=== PATIENT | female | born 2005 | race Two or more races ===

== ENCOUNTER 2024-07-31 07:03 | Inpatient (IN) | payer SELFPAY ==
[~2024-07-31 07:03] MED LIST: Bupivacaine 0.25% 10 ML SDV ONE
[2024-07-31] MEDS ORDERED: Sodium Chloride 0.9% 10 ML Syringe FLUSH PRN (08:13)
[2024-07-31] MEDS ORDERED: Ondansetron 4 MG/2 ML SDV IVPUSH PRN (08:13)
[2024-07-31] MEDS ORDERED: Calcium Carbonate 500 MG Tab.Chew PO PRN (08:13)
[2024-07-31] MEDS ORDERED: Lidocaine 1% 50 ML MDV INJECT PRN (08:13)
[2024-07-31] MEDS ORDERED: Oxytocin/0.9 % Sodium Chloride 30 UNIT/500 ML BAG IV SCH ×2 (08:15→20:15)
[2024-07-31 08:50] LABS: BASOPHILS PERCENT AUTO 0.2 % (0.0-1.0); EOSINOPHILS ABSOLUTE AUTO 0.1 K/mm3 (0.0-0.4); EOSINOPHILS PERCENT AUTO 0.5 % (0.0-6.0); HEMATOCRIT 36.7 % (37.0-47.0); HEMOGLOBIN 11.7 gm/dl (12.0-16.0); IMMATURE GRAN ABSOLUTE AUTO 0.03 K/mm3 (0.00-0.05); IMMATURE GRAN PERCENT AUTO 0.3 % (0.0-0.4); LYMPHOCYTES PERCENT AUTO 20.3 % (24.0-44.0); MEAN CORPUSCULAR HEMOGLOBIN 25.8 pg (28.0-32.0); MEAN CORPUSCULAR HGB CONC 31.9 g/dl (32.0-36.0); MEAN PLATELET VOLUME 11.7 fl (9.4-12.3); MONOCYTES ABSOLUTE AUTO 0.6 K/mm3 (0.0-0.8); NEUTROPHILS ABSOLUTE AUTO 7.2 K/mm3 (1.8-7.7); NEUTROPHILS PERCENT AUTO 72.7 % (41.0-71.0); PLATELET COUNT,PLT 199 K/mm3 (150-400); RED BLOOD CELL COUNT 4.53 M/mm3 (4.10-5.30); WHITE BLOOD CELL COUNT,WBC 9.88 K/mm3 (3.9-11.3)
[2024-07-31] MEDS: Lactated Ringers 1,000 ML IV SCH (09:20)
[2024-07-31] MEDS: Oxytocin/0.9 % Sodium Chloride 30 UNIT/500 ML BAG IV SCH (09:21)
[2024-07-31 09:54] LABS: CREATININE 0.6 mg/dL (0.55-1.02); EST CRCL DRUG DOSING (CG) 106.53 mL/min; URIC ACID 4.4 mg/dL (2.6-6.0)
[2024-07-31 12:04] LABS: CREATININE,URINE RAND 206.2 mg/dL (30.0-125.0); PROTEIN CREATININE RATIO,URINE 467.5 mg/g (0-149); PROTEIN,URINE RANDOM 96.4 mg/dL (0.0-11.8)
[2024-07-31] MEDS: Nalbuphine 10 MG/1 ML Vial IVPUSH PRN (15:28)
[2024-07-31] MEDS ORDERED: ePHEDrine 50 MG/ML SDV IVPUSH PRN (15:39)
[2024-07-31] MEDS ORDERED: diphenhydrAMINE 50 MG/ML SDV IVPUSH PRN (15:39)
[2024-07-31] MEDS: fentaNYL 100 MCG/2 ML SDV EPIDUR PRN (15:45)
[2024-07-31] MEDS: Bupivacaine/fentaNYL/NS 100 ML Bag EPIDUR PRN (15:48)
[2024-07-31] MEDS ORDERED: Acetaminophen 325 MG Tab PO PRN (20:15)
[2024-07-31] MEDS ORDERED: Simethicone 80 MG Tab.Chew PO PRN (20:15)
[2024-07-31] MEDS ORDERED: Hydrocortisone Acetate 25 MG Supp RECTAL PRN (20:15)
[2024-07-31] MEDS ORDERED: Magnesium Hydroxide 400 MG/5 ML Susp 30 ML Cup PO PRN (20:15)
[2024-08-01] MEDS: Benzocaine/Menthol 20%-0.5% Spray 78 GM Cannister TOP PRN (00:20)
[2024-08-01] MEDS: Witch Hazel Medicated Pads 40/Jar TOP PRN (00:20)
[2024-08-01] MEDS: Ibuprofen 600 MG Tab PO SCH ×2 (04:43→14:00)
[2024-08-01] MEDS: Prenatal Multivitamin with Calcium/Folic Acid/Iron Tab PO SCH (14:00)
[2024-08-01] MEDS ORDERED: Sodium Chloride 0.9% 10 ML Syringe FLUSH PRN (21:02)
[2024-08-01] MEDS ORDERED: Calcium Gluconate 10% 1 GM/10 ML SDV IV PRN (21:02)
[2024-08-01] MEDS: Labetalol 100 MG/20 ML MDV IVPUSH ONE (21:32)
[2024-08-01] MEDS: Lactated Ringers 1,000 ML IV SCH (22:00)
[2024-08-01] MEDS: Magnesium Sulf/Wat 40GM/1000mL 40 GM/1,000 ML BAG IV SCH (22:33)
[2024-08-02] MEDS: Docusate Sodium 100 MG Cap PO PRN (05:02)
[2024-08-02] MEDS: Labetalol 100 MG Tab PO SCH ×2 (05:03→20:25)
[2024-08-02] MEDS: Labetalol 100 MG Tab PO ONE (05:04)
[2024-08-02] MEDS: Sodium Chloride 0.9% 10 ML Syringe FLUSH SCH (09:15)
[2024-08-02 14:41] LABS: HEP B SURFACE AG Negative (Negative)
[2024-08-02 15:42] LABS: HCV AB BY CIA INTERP Negative (Negative); HEPC AB BY CIA INDEX 0.17 IV
[2024-08-02 17:42] LABS: HIV 1,2 COMBO AG/AB CIA W/RFLX Negative (Negative)
[2024-08-03] MEDS: Labetalol 100 MG Tab PO SCH ×2 (09:41→16:25)
[2024-08-03] MEDS: Labetalol 100 MG Tab PO ONE (11:56)
[2024-08-03] MEDS: NIFEdipine 30 MG Tab.ER PO SCH (17:53)
[2024-08-04] MEDS: Labetalol 100 MG Tab PO SCH (06:56)
== END 2024-08-04 17:58 | disposition home or self-care (01) | DRG 806 ==
LOC: JD.OB 07:03 → OBSVTOIN 18:08 → JD.OB 18:09
PROVIDERS: ADMIT Obstetrics & Gynecology; ATTEND Obstetrics & Gynecology
PROC: 10E0XZZ Delivery of Products of Conception, External Approach (ICD-10-PCS; principal; 2024-07-31)
PROC: 10907ZC Drainage of Amniotic Fluid, Therapeutic from Products of Conception, Via Natural or Artificial Opening (ICD-10-PCS; 2024-07-31)
PROC: 3E033VJ Introduction of Other Hormone into Peripheral Vein, Percutaneous Approach (ICD-10-PCS; 2024-07-31)
PROC: 3E0R3BZ Introduction of Anesthetic Agent into Spinal Canal, Percutaneous Approach (ICD-10-PCS; 2024-07-31)
PROC: 00HU33Z Insertion of Infusion Device into Spinal Canal, Percutaneous Approach (ICD-10-PCS; 2024-07-31)
DX: O14.94 Unspecified pre-eclampsia, complicating childbirth (principal); O98.82 Other maternal infectious and parasitic diseases complicating childbirth; Z37.0 Single live birth; O99.214 Obesity complicating childbirth; O70.0 First degree perineal laceration during delivery; Z3A.39 39 weeks gestation of pregnancy
CPT/HCPCS: 01967; 36415; 51701; 59025; 59409; 82565; 82570; 83615; 84156; 84450; 84460; 84520; 84550; 85025; 86592; 86762; 86803; 87340; 87389; A9270-GY; C1758; J0665; J1920; J2300; J3010; J3475; J3490; J7120; J7999

== ENCOUNTER 2025-03-26 18:09 | Emergency (ER) | payer SELFPAY ==
[2025-03-26] MEDS: Ketorolac 60 MG/2 ML SDV IM ONE (18:56)
== END 2025-03-26 19:45 | disposition home or self-care (01) ==
LOC: JD.ED 18:09
DX: T24.212A Burn of second degree of left thigh, initial encounter (principal); T25.122A Burn of first degree of left foot, initial encounter; T25.121A Burn of first degree of right foot, initial encounter; E66.9 Obesity, unspecified; Z68.43 Body mass index [BMI] 50.0-59.9, adult; Z79.899 Other long term (current) drug therapy; X12.XXXA Contact with other hot fluids, initial encounter
CPT/HCPCS: 96372; 99283; A9270; J1885